=== PATIENT | male | born 1950 | race Caucasian/White ===

== ENCOUNTER 2018-12-12 16:00 | Inpatient (IN) | payer MEDICARE, MEDICAID ==
[~2018-12-12] VITALS: Ht 152.4 cm; Wt 97.0 kg
[~2018-12-12 16:00] MED LIST: AMLO-145 PO; ERTA1VIA3 IVPB; LINE600T33 PO
[2018-12-12 16:04] VITALS: Ht 152.4 cm; Wt 97.0 kg
[2018-12-12] MEDS ORDERED: SODIUM CHLORIDE 0.9% 1L BAG IV* STA (16:07)
[2018-12-12] MEDS ORDERED: ACETAMINOPHEN 325 MG TAB PO STA (16:07)
[2018-12-12] MEDS ORDERED: ONDANSETRON 4 MG INJ IV STA (16:51)
[2018-12-12] MEDS ORDERED: morphine 4 MG/ML VIAL IV STA (16:51)
[2018-12-12] MEDS ORDERED: PIPER-TAZO 3.375 GM IV (PMX) 100 ML IVPB ONE (17:00)
[2018-12-12] MEDS ORDERED: ACETAMINOPHEN 325 MG TAB PO PRN (20:00)
[2018-12-12] MEDS ORDERED: ONDANSETRON 4 MG INJ IV PRN ×2 (20:00→23:30)
[2018-12-12] MEDS ORDERED: HYDROmorphONE 0.5 MG/0.5 ML SYG IV STA (21:04)
[2018-12-12] MEDS ORDERED: HYDROmorphONE 1 MG/ML SYG ONE (21:11)
[2018-12-12] MEDS ORDERED: NICARDipine HCL 30 MG CAPSULE PO ONE (22:30)
[2018-12-12 23:30] VITALS: BP 151/87; PULSE 101; RESP 18
[2018-12-12] MEDS ORDERED: NACL 0.9% 3 ML SYG IV SCH (23:30)
[2018-12-12] MEDS: PIPER-TAZO 3.375 GM IV (PMX) 100 ML IVPB SCH (23:48)
[2018-12-12] MEDS: morphine 2 MG INJ IV PRN (23:48)
[2018-12-12] MEDS: DEXTROSE 5%-0.45% NACL 1,000 ML IV SCH (23:48)
[2018-12-13] VITALS (14 sets, daily range): BP systolic 120–199; BP diastolic 72–100; PULSE 87–119; RESP 16–22
[2018-12-13] MEDS: PIPER-TAZO 3.375 GM IV (PMX) 100 ML IVPB SCH ×4 (05:24→23:51)
[2018-12-13] MEDS ORDERED: ACETAMINOPHEN 1000MG/100ML IV 100 ML IVPB STA (05:55)
[2018-12-13] MEDS ORDERED: HEPARIN 5,000 UNIT/1 ML VIAL SC SCH (09:00)
[2018-12-13] MEDS: DEXTROSE 5%-0.45% NACL 1,000 ML IV SCH ×2 (09:03→11:34)
[2018-12-13] MEDS: morphine 2 MG INJ IV PRN ×2 (10:03→15:04)
[2018-12-13] MEDS ORDERED: ACETAMINOPHEN 1000MG/100ML IV 100 ML IVPB PRN (10:30)
[2018-12-13] MEDS ORDERED: IOHEXOL 300MG/ML 30 ML BTL ONE (14:46)
[2018-12-13] MEDS ORDERED: INDOMETHACIN 50 MG SUPP PR ONE (15:00)
[2018-12-13] MEDS: hydrALAzine 20 MG INJ IV PRN (15:23)
[2018-12-13] MEDS ORDERED: LABETALOL HCL 20MG INJ ONE (15:24)
[2018-12-13] MEDS ORDERED: hydrALAzine 20 MG INJ ONE (15:24)
[2018-12-13] MEDS ORDERED: hydrALAzine 20 MG INJ IV PRN (16:00)
[2018-12-13] MEDS ORDERED: FENTAnyl 50 MCG/ML VIAL IV PRN ×3 (16:00)
[2018-12-13] MEDS ORDERED: LABETALOL HCL 20MG INJ IV PRN (16:00)
[2018-12-13] MEDS ORDERED: CEFAZOLIN 1 GM INJ ONE (16:00)
[2018-12-13] MEDS ORDERED: HYDROmorphONE 1 MG/5 ML IV SYRINGE IV PRN ×3 (16:00)
[2018-12-13] MEDS ORDERED: MEPERIDINE 25 MG INJ IV PRN (16:00)
[2018-12-13] MEDS ORDERED: ONDANSETRON 4 MG INJ IV PRN (16:00)
[2018-12-13] MEDS ORDERED: DIPHENHYDRAMINE 50 MG INJ IV PRN (16:00)
[2018-12-13] MEDS ORDERED: SUCCINYLCHOLINE CHLORIDE 100 MG/5 ML SYG IV ONE (16:04)
[2018-12-13] MEDS ORDERED: PROPOFOL 20 ML ONE (16:04)
[2018-12-13] MEDS ORDERED: FENTAnyl 50 MCG/ML VIAL ONE ×2 (16:04→16:17)
[2018-12-13] MEDS ORDERED: PHENYLephrine (100 MCG/ML) 10ML SYG ONE (16:27)
[2018-12-13] MEDS: HEPARIN 5,000 UNIT/1 ML VIAL SC SCH (21:06)
[2018-12-14] VITALS (8 sets, daily range): BP systolic 138–182; BP diastolic 78–96; PULSE 66–95; RESP 16–20
[2018-12-14] MEDS: DEXTROSE 5%-0.45% NACL 1,000 ML IV SCH ×3 (04:15→15:47)
[2018-12-14] MEDS: PIPER-TAZO 3.375 GM IV (PMX) 100 ML IVPB SCH ×4 (06:06→23:38)
[2018-12-14] MEDS: hydrALAzine 20 MG INJ IV PRN ×2 (08:35→20:52)
[2018-12-14] MEDS: HEPARIN 5,000 UNIT/1 ML VIAL SC SCH ×2 (08:36→20:51)
[2018-12-14] MEDS: AMLODIPINE 5 MG TAB PO SCH (09:50)
[2018-12-15] VITALS (10 sets, daily range): BP systolic 144–184; BP diastolic 81–98; PULSE 71–105; RESP 16–18
[2018-12-15] MEDS: PIPER-TAZO 3.375 GM IV (PMX) 100 ML IVPB SCH (05:39)
[2018-12-15] MEDS: HEPARIN 5,000 UNIT/1 ML VIAL SC SCH ×2 (08:22→22:08)
[2018-12-15] MEDS: AMLODIPINE 5 MG TAB PO SCH (08:22)
[2018-12-15] MEDS: hydrALAzine 20 MG INJ IV PRN ×3 (10:21→22:17)
[2018-12-15] MEDS ORDERED: ERTAPENEM SODIUM 1 GM in SOD CHLORIDE 0.9% 100 ML IVPB SCH (13:00)
[2018-12-16] VITALS (8 sets, daily range): BP systolic 134–172; BP diastolic 71–94; PULSE 73–93; RESP 17–18
[2018-12-16] MEDS: hydrALAzine 20 MG INJ IV PRN ×2 (03:38→20:33)
[2018-12-16] MEDS: AMLODIPINE 5 MG TAB PO SCH (09:13)
[2018-12-16] MEDS: HEPARIN 5,000 UNIT/1 ML VIAL SC SCH ×2 (09:13→20:32)
[2018-12-16] MEDS ORDERED: ERTAPENEM SODIUM 1 GM in SOD CHLORIDE 0.9% 100 ML IVPB SCH (13:30)
[2018-12-16] MEDS ORDERED: PANTOPRAZOLE (EC) 40 MG TAB PO ONE ×2 (22:25→22:30)
[2018-12-16] MEDS ORDERED: AMLODIPINE 5 MG TAB PO ONE (22:30)
[2018-12-17 02:17] VITALS: BP 155/82; PULSE 92; RESP 18
[2018-12-17] MEDS: PANTOPRAZOLE (EC) 40 MG TAB PO SCH (06:24)
[2018-12-17 08:00] VITALS: BP 136/83; PULSE 90; RESP 19
[2018-12-17] MEDS: HEPARIN 5,000 UNIT/1 ML VIAL SC SCH ×2 (09:16→20:36)
[2018-12-17] MEDS: AMLODIPINE 5 MG TAB PO SCH ×2 (09:17→21:30)
[2018-12-17] MEDS ORDERED: VANCOMYCIN IV PER PHARMACY XX SCH (10:30)
[2018-12-17] MEDS ORDERED: ZYVOX 600 MG TAB PO SCH (11:30)
[2018-12-17] MEDS ORDERED: VANCOMYCIN HCL 2 GM in SOD CHLORIDE 0.9% 500 ML IVPB SCH (12:00)
[2018-12-17 14:00] VITALS: BP 148/80; PULSE 84; RESP 17
[2018-12-17] MEDS: ERTAPENEM SODIUM 1 GM in SOD CHLORIDE 0.9% 100 ML IVPB SCH (18:40)
[2018-12-17 20:00] VITALS: BP 175/89; PULSE 75; RESP 18
[2018-12-17 20:30] VITALS: BP 172/95; PULSE 73
[2018-12-17] MEDS: hydrALAzine 20 MG INJ IV PRN (20:47)
[2018-12-17 21:30] VITALS: BP 156/79; PULSE 86
[2018-12-18] MEDS ORDERED: VANCOMYCIN 1 GM 250 ML IVPB SCH (01:00)
[2018-12-18 01:26] VITALS: BP 135/84; PULSE 77; RESP 19
[2018-12-18] MEDS: PANTOPRAZOLE (EC) 40 MG TAB PO SCH (05:50)
[2018-12-18 08:18] VITALS: BP 141/87; PULSE 79; RESP 20
[2018-12-18] MEDS: HEPARIN 5,000 UNIT/1 ML VIAL SC SCH ×2 (08:31→21:10)
[2018-12-18] MEDS: AMLODIPINE 5 MG TAB PO SCH ×2 (08:32→21:09)
[2018-12-18] MEDS: ZYVOX 600 MG TAB PO SCH ×2 (11:46→21:09)
[2018-12-18 14:00] VITALS: BP 157/79; PULSE 82; RESP 20
[2018-12-18] MEDS: ERTAPENEM SODIUM 1 GM in SOD CHLORIDE 0.9% 100 ML IVPB SCH (17:28)
[2018-12-18 20:19] VITALS: BP 143/74; PULSE 83; RESP 16
[2018-12-19 02:22] VITALS: BP 123/59; PULSE 75; RESP 16
[2018-12-19] MEDS: PANTOPRAZOLE (EC) 40 MG TAB PO SCH (05:44)
[2018-12-19 08:00] VITALS: BP 165/87; PULSE 87; RESP 20
[2018-12-19] MEDS: ZYVOX 600 MG TAB PO SCH ×2 (08:26→20:39)
[2018-12-19] MEDS: HEPARIN 5,000 UNIT/1 ML VIAL SC SCH ×2 (08:27→20:41)
[2018-12-19] MEDS: AMLODIPINE 5 MG TAB PO SCH ×2 (08:27→20:39)
[2018-12-19 10:14] VITALS: BP 140/74
[2018-12-19 14:00] VITALS: BP 146/86; PULSE 84; RESP 18
[2018-12-19] MEDS: ERTAPENEM SODIUM 1 GM in SOD CHLORIDE 0.9% 100 ML IVPB SCH (16:44)
[2018-12-19 20:38] VITALS: BP 160/73; PULSE 74; RESP 16
[2018-12-19 21:45] VITALS: BP 131/71; PULSE 85
[2018-12-20 02:30] VITALS: BP 135/67; PULSE 71; RESP 16
[2018-12-20] MEDS: PANTOPRAZOLE (EC) 40 MG TAB PO SCH (05:19)
[2018-12-20 08:20] VITALS: BP 145/75; PULSE 67; RESP 18
[2018-12-20] MEDS: ZYVOX 600 MG TAB PO SCH (08:41)
[2018-12-20] MEDS: AMLODIPINE 5 MG TAB PO SCH (08:42)
[2018-12-20] MEDS: HEPARIN 5,000 UNIT/1 ML VIAL SC SCH (08:43)
[2018-12-20 14:41] VITALS: BP 141/74; PULSE 62; RESP 18
[2018-12-20] MEDS: ERTAPENEM SODIUM 1 GM in SOD CHLORIDE 0.9% 100 ML IVPB SCH (16:45)
== END 2018-12-20 19:00 | disposition home health service (06) | DRG 872 ==
LOC: E/R 16:00 → PP2 19:33
PROVIDERS: ADMIT Internal Medicine; ATTEND Internal Medicine
PROC: 0F798DZ Dilation of Common Bile Duct with Intraluminal Device, Via Natural or Artificial Opening Endoscopic (ICD-10-PCS; 2018-12-13)
PROC: 0FC98ZZ Extirpation of Matter from Common Bile Duct, Via Natural or Artificial Opening Endoscopic (ICD-10-PCS; 2018-12-13)
PROC: 0FC88ZZ Extirpation of Matter from Cystic Duct, Via Natural or Artificial Opening Endoscopic (ICD-10-PCS; 2018-12-13)
PROC: BF10YZZ Fluoroscopy of Bile Ducts using Other Contrast (ICD-10-PCS; 2018-12-13)
PROC: 0FPB8DZ Removal of Intraluminal Device from Hepatobiliary Duct, Via Natural or Artificial Opening Endoscopic (ICD-10-PCS; principal; 2018-12-13 15:00)
DX: A41.9 Sepsis, unspecified organism (principal); Z68.41 Body mass index [BMI] 40.0-44.9, adult; T85.590A Other mechanical complication of bile duct prosthesis, initial encounter; K80.30 Calculus of bile duct with cholangitis, unspecified, without obstruction; K80.70 Calculus of gallbladder and bile duct without cholecystitis without obstruction; R74.0 Nonspecific elevation of levels of transaminase and lactic acid dehydrogenase [LDH]; E66.9 Obesity, unspecified; Y84.8 Other medical procedures as the cause of abnormal reaction of the patient, or of later complication, without mention of misadventure at the time of the procedure; Y92.019 Unspecified place in single-family (private) house as the place of occurrence of the external cause; I10 Essential (primary) hypertension; B96.20 Unspecified Escherichia coli [E. coli] as the cause of diseases classified elsewhere; B95.2 Enterococcus as the cause of diseases classified elsewhere
CPT/HCPCS: 36415; 71045; 74176; 74181; 74330; 76705; 80048; 80053; 80061; 80076; 81001; 82962; 83036; 83605; 83690; 83735; 84100; 84439; 84443; 84484; 85025; 85610; 85730; 87045; 87086; 93005; 96374; 96375; C2617; J0131; J0360; J0690; J1170; J1335; J1644; J2270; J2370; J2405; J2543; J3010; J3370; J7030; J7040; J7042; Q9967